=== PATIENT | female | born 2000 | race Caucasian/White ===

== ENCOUNTER 2022-01-12 08:29 | Emergency (ER) | payer BC, SELFPAY ==
[2022-01-12] MEDS ORDERED: Acetaminophen 500 MG TAB ONE (09:16)
== END 2022-01-12 09:53 | disposition home or self-care (01) ==
LOC: BURERS 08:29
DX: S62.011A Displaced fracture of distal pole of navicular [scaphoid] bone of right wrist, initial encounter for closed fracture (principal); S62.002A Unspecified fracture of navicular [scaphoid] bone of left wrist, initial encounter for closed fracture; W17.89XA Other fall from one level to another, initial encounter